=== PATIENT | female | born 1935 | race Caucasian/White ===

== ENCOUNTER 2023-03-06 12:50 | Emergency (ER) | payer MEDICARE, BC ==
[2023-03-06] MEDS ORDERED: BABY ASPIRIN 81 MG CHEW PO ONE (13:00)
[2023-03-06] MEDS ORDERED: Sodium Chloride 0.9% 1000 ML 1,000 ML IV STA (13:00)
[2023-03-06] MEDS ORDERED: Sodium Chloride 0.9% 1000 ML 1,000 ML ONE (13:05)
[2023-03-06] MEDS ORDERED: BABY ASPIRIN 81 MG CHEW ONE (13:05)
[2023-03-06 13:23] LABS: Absolute Neutrophil Ct (ANC) 3.03 x10^3/uL (1.4-6.9); Basophil (Absolute #) 0.05 x10^3/uL (0-0.4); Eosinophil % 2.9 % (0.00-5.0); Eosinophil (Absolute #) 0.15 x10^3/uL (0-0.5); Hematocrit 33.7 % (35-47); Hemoglobin 10.9 g/dL (12.0-16.0); IMMATURE GRAN # 0.02 x10^3u/L (0.00-0.03); IMMATURE GRAN % 0.4 % (0.00-0.4); Lymphocyte (Absolute #) 1.16 x10^3/uL (1.0-4.6); Lymphocytes % 22.5 % (24.0-44.0); Mean Corpuscular Hemoglobin 32.3 pg (26-32); Mean Corpuscular Hgb Concent. 32.3 g/dL (32-36); Mean Platelet Volume 10.4 fL (7.5-11.0); Monocyte (Absolute #) 0.75 x10^3/uL (0.0-1.3); Monocytes % 14.5 % (0.0-12.0); Neutrophil % 58.7 % (36.0-66.0); Platelet Count 153 x10^3/uL (150-450); Red Blood Count 3.37 x10^6/uL (4.1-5.4); Red Cell Distribution Width 13.2 % (11.5-14.0); White Blood Count 5.2 x10^3/uL (4.0-10.5)
--- NOTE | 2023-03-06 13:23 | ERPHSYRPT ---
- History of Present Illness Time Seen by Provider: 03/06/23 12:53 Source: patient Exam Limitations: no limitations Patient Subjective Stated Complaint: Syncope Triage Nursing Assessment: Patient brought into ED per EMS and transferred to bed with assist of 3. Patient A+O X 3. Patient's skin pale, warm and dry. Patient states she had a syncopal episode at [facility]. Patient states she remembers sitting at [facility] in a pew. Family states she was sitting at [facility] when they noticed patient became clammy and "passed out" for several minutes. Patient denies pain or discomfort. Physician History: Patient is here with syncope at [facility]. Just prior to arrival patient apparently had a syncopal episode. Patient sat down. States that she does not remember passing out. Family states that she was minimally responsive. However woke up immediately. EMS arrived. Stated the patient was hypotensive with a possible low pulse rate. Patient does have a pacemaker therefore patient maker should not drop below 60. No other falls or trauma. No fever or chills. Patient has been coughing the past few days. Patient states she is back to baseline and feels fine. Allergies/Adverse Reactions: No Known Drug Allergies Allergy (Unverified 03/06/23 15:31) Home Medications: Albuterol 2.5 mg/0.5 ml [PROVENTIL Solution 2.5 MG/0.5 ML] 1 neb NEBULIZE DAILY PRN PRN 03/06/23 [History] Azelastine HCl 1 drop DROPS BID 03/06/23 [History] Bumetanide 1 mg [Bumex 1 mg] 1 mg PO DAILY 03/06/23 [History] Carvedilol 3.125 mg [Coreg 3.125 MG] 3.125 mg PO BID 03/06/23 [History] Levothyroxine Sodium 112 Mcg [Synthroid 112 Mcg] 112 mcg PO DAILY 03/06/23 [History] Montelukast Sodium 10 mg [Singulair 10 MG] 10 mg PO DAILY 03/06/23 [History] Potassium Chloride 100 meq PO BID 03/06/23 [History] Pregabalin [Lyrica 100Mg] 100 mg PO TID 03/06/23 [History] Sacubitril/Valsartan [Entresto 24 mg-26 mg Tablet] 1 tab PO DAILY 03/06/23 [History] Temazepam 15 mg [Restoril 15 MG] 15 mg PO DAILY 03/06/23 [History] Hx Influenza Vaccination/Date Given: Yes Hx Pneumococcal Vaccination/Date Given: Yes Immunizations Up to Date: Yes Travel Risk - International Travel Have you traveled outside of the country in past 3 weeks: No - Coronavirus Screening Are you exhibiting any of the following symptoms?: No Close contact with a COVID-19 positive Pt in past 14-21 Days: No - Vaccine Status Have you recieved a Covid-19 vaccination: Yes Assistant Professor Of Philosophy: Unknown - Vaccination Dates Date of 2cond Vaccination (if applicable): na Dates if Unknown: na - Review of Systems Constitutional: No Fever, No Chills Eyes: No Symptoms Ears, Nose, & Throat: No Symptoms Respiratory: No Cough, No Dyspnea Cardiac: Syncope, No Chest Pain, No Edema Abdominal/Gastrointestinal: No Abdominal Pain, No Nausea, No Vomiting, No Diarrhea Genitourinary Symptoms: No Dysuria Musculoskeletal: No Back Pain, No Neck Pain Skin: No Rash Neurological: No Dizziness, No Focal Weakness, No Sensory Changes Psychological: No Symptoms Endocrine: No Symptoms All Other Systems: Reviewed and Negative - Past Medical History Pertinent Past Medical History: Yes Neurological History: No Pertinent History ENT History: No Pertinent History Cardiac History: Arrhythmia, High Cholesterol, Hypertension Respiratory History: No Pertinent History Endocrine Medical History: Hypothyroidism Musculoskeletal History: No Pertinent History GI Medical History: No Pertinent History History: No Pertinent History Psycho-Social History: No Pertinent History Female Reproductive Disorders: No Pertinent History Other Medical History: Pacemaker - Past Surgical History Past Surgical History: Yes Neuro Surgical History: No Pertinent History Cardiac: Pacemaker Respiratory: No Pertinent History Gastrointestinal: No Pertinent History Genitourinary: No Pertinent History Musculoskeletal: Orthopedic Surgery Female Surgical History: Mastectomy Other Surgical History: Masectomy right breast. Left wrist - Social History Smoking Status: Never smoker Exposure to second hand smoke: No Drug Use: none Patient Lives Alone: No - Nursing Vital Signs Nursing Vital Signs: Initial Vital Signs Temperature 97.4 F 03/06/23 12:56 Pulse Rate 60 03/06/23 12:56 Respiratory Rate 19 03/06/23 12:56 Blood Pressure 116/59 03/06/23 12:56 O2 Sat by Pulse Oximetry 95 03/06/23 12:56 Pain Scale Pain Intensity 0 - Physical Exam General Appearance: no apparent distress, alert Eye Exam: PERRL/EOMI, eyes nml inspection Ears, Nose, Throat Exam: normal ENT inspection, TMs normal, pharynx normal, moist mucous membranes Neck Exam: normal inspection, non-tender, supple, full range of motion Respiratory Exam: normal breath sounds, lungs clear, No respiratory distress Cardiovascular Exam: regular rate/rhythm, normal heart sounds, normal peripheral pulses Gastrointestinal/Abdomen Exam: soft, normal bowel sounds, No tenderness, No mass Back Exam: normal inspection, normal range of motion, No CVA tenderness, No vertebral tenderness Extremity Exam: normal inspection, normal range of motion, pelvis stable Neurologic Exam: alert, oriented x 3, cooperative, normal mood/affect, nml cerebellar function, nml station & gait, sensation nml, No motor deficits Skin Exam: normal color, warm, dry, No rash Lymphatic Exam: No adenopathy SpO2: 96 - Course Nursing assessment & vital signs reviewed: Yes EKG Interpreted by Me: RATE (Ventricularly paced pacemaker at 60) Ordered Tests: Active Orders 24 hr Category Date Time Status Meat And Seafood Manager STAT Care 03/06/23 13:01 Completed EKG-ER Only STAT Care 03/06/23 13:00 Completed IV Insertion STAT Care 03/06/23 13:00 Completed ABDOMEN AND PELVIS W CONTRAST [CT] Stat Exams 03/06/23 14:02 Completed CHEST 1 VIEW (PORTABLE) Stat Exams 03/06/23 13:01 Taken CHEST WITH CONTRAST [CT] Stat Exams 03/06/23 14:02 Completed HEAD WITHOUT CONTRAST [CT] Stat Exams 03/06/23 13:02 Completed CBC W DIFF Stat Lab 03/06/23 13:17 Completed CMP Stat Lab 03/06/23 13:17 Completed CULTURE,URINE Stat Lab 03/06/23 15:08 Ordered D-DIMER QUANTITATIVE Stat Lab 03/06/23 13:17 Completed PROCALCITONIN Stat Lab 03/06/23 13:17 Completed TROPONIN Q4H Lab 03/06/23 13:17 Completed TROPONIN Q4H Lab 03/06/23 14:54 Completed UA W/RFX UR CULTURE Stat Lab 03/06/23 13:45 Completed Medication Summary Discontinued Medications Generic Name Dose Route Start Last Admin Trade Name Freq PRN Reason Stop Dose Admin Aspirin 324 mg 03/06/23 13:00 03/06/23 13:06 Aspirin 81 Mg Tab.Chew PO 03/06/23 13:01 324 mg STAT ONE Administration Aspirin Confirm 03/06/23 13:05 Aspirin 81 Mg Tab.Chew Administered 03/06/23 13:06 Dose 324 mg .ROUTE .STK-MED ONE Sodium Chloride 1,000 mls @ 999 mls/hr 03/06/23 13:00 03/06/23 14:14 Sodium Chloride 0.9% 1000 Ml IV 03/06/23 14:00 Infused .Q1H1M STA Infusion Sodium Chloride Confirm 03/06/23 13:05 Sodium Chloride 0.9% 1000 Ml Administered 03/06/23 13:06 Dose 1,000 mls @ ud .ROUTE .STAcesoBee-MED ONE Lab/Rad Data: Laboratory Result Diagrams 03/06/23 13:17 03/06/23 13:17 Laboratory Results 03/06/23 03/06/23 03/06/23 Range/Units 14:54 13:45 13:17 WBC (4.0-10.5) x10^3/uL RBC (4.1-5.4) x10^6/uL Hgb (12.0-16.0) g/dL Hct (35-47) % MCV (78-100) fL MCH (26-32) pg MCHC (32-36) g/dL RDW (11.5-14.0) % Plt Count (150-450) x10^3/uL MPV (7.5-11.0) fL Gran % (36.0-66.0) % Immature Gran % (Auto) (0.00-0.4) % Nucleat RBC Rel Count (0.00-0.1) % Eos # (Auto) (0-0.5) x10^3/uL Immature Gran # (Auto) (0.00-0.03) x10^3u/L Absolute Lymphs (auto) (1.0-4.6) x10^3/uL Absolute Monos (auto) (0.0-1.3) x10^3/uL Absolute Nucleated RBC (0.00-0.01) x10^3u/L Lymphocytes % (24.0-44.0) % Monocytes % (0.0-12.0) % Eosinophils % (0.00-5.0) % Basophils % (0.0-0.4) % Absolute Granulocytes (1.4-6.9) x10^3/uL Basophils # (0-0.4) x10^3/uL D-Dimer (0.0-0.50) mg/L Sodium (137-145) mmol/L Potassium (3.5-5.1) mmol/L Chloride (98-107) mmol/L Carbon Dioxide (22-30) mmol/L Anion Gap (5-15) MEQ/L BUN (7-17) mg/dL Creatinine (0.52-1.04) mg/dL Estimated GFR ML/MIN Glucose (74-106) mg/dL Calcium (8.4-10.2) mg/dL Total Bilirubin (0.2-1.3) mg/dL AST (14-36) U/L ALT (0-35) U/L Alkaline Phosphatase (38-126) U/L Troponin I < 0.012 (0.000-0.034) ng/mL Serum Total Protein (6.3-8.2) g/dL Albumin (3.5-5.0) g/dL Procalcitonin 0.054 (0.030-0.080) ng/mL Urine Color Yellow (Yellow) Urine Appearance Clear (Clear) Urine pH 6.5 (4.6-8.0) Ur Specific [place] 1.020 (1.005-1.030) Urine Protein 30 (Negative) Urine Glucose (UA) Negative (Negative) mg/dL Urine Ketones Negative (Negative) Urine Blood Negative (Negative) Urine Nitrite Negative (Negative) Urine Bilirubin Negative (Negative) Urine Urobilinogen 1.0 A (0.2) mg/dL Ur Leukocyte Esterase Trace A (Negative) U Hyaline Cast (Auto) 6-10 A (0-2) /LPF Urine Microscopic RBC 0-2 (0-5) /HPF Urine Microscopic WBC 0-2 (0-5) /HPF Ur Epithelial Cells None Seen (None Seen) /HPF Urine Bacteria None Seen (None Seen) /HPF Urine Culture Reflexed NO (NO) Influenza Type A Ag (NEGATIVE) Influenza Type B Ag (NEGATIVE) RSV (PCR) (NEGATIVE) SARS-CoV-2 (PCR) (NEGATIVE) 03/06/23 03/06/23 03/06/23 Range/Units 13:17 13:17 13:17 WBC (4.0-10.5) x10^3/uL RBC (4.1-5.4) x10^6/uL Hgb (12.0-16.0) g/dL Hct (35-47) % MCV (78-100) fL MCH (26-32) pg MCHC (32-36) g/dL RDW (11.5-14.0) % Plt Count (150-450) x10^3/uL MPV (7.5-11.0) fL Gran % (36.0-66.0) % Immature Gran % (Auto) (0.00-0.4) % Nucleat RBC Rel Count (0.00-0.1) % Eos # (Auto) (0-0.5) x10^3/uL Immature Gran # (Auto) (0.00-0.03) x10^3u/L Absolute Lymphs (auto) (1.0-4.6) x10^3/uL Absolute Monos (auto) (0.0-1.3) x10^3/uL Absolute Nucleated RBC (0.00-0.01) x10^3u/L Lymphocytes % (24.0-44.0) % Monocytes % (0.0-12.0) % Eosinophils % (0.00-5.0) % Basophils % (0.0-0.4) % Absolute Granulocytes (1.4-6.9) x10^3/uL Basophils # (0-0.4) x10^3/uL D-Dimer 1.74 H* (0.0-0.50) mg/L Sodium 142 (137-145) mmol/L Potassium 3.7 (3.5-5.1) mmol/L Chloride 106 (98-107) mmol/L Carbon Dioxide 27 (22-30) mmol/L Anion Gap 12.7 (5-15) MEQ/L BUN 17 (7-17) mg/dL Creatinine 0.90 (0.52-1.04) mg/dL Estimated GFR > 60.0 ML/MIN Glucose 97 (74-106) mg/dL Calcium 8.0 L (8.4-10.2) mg/dL Total Bilirubin 1.00 (0.2-1.3) mg/dL AST 24 (14-36) U/L ALT 22 (0-35) U/L Alkaline Phosphatase 65 (38-126) U/L Troponin I < 0.012 (0.000-0.034) ng/mL Serum Total Protein 6.5 (6.3-8.2) g/dL Albumin 3.1 L (3.5-5.0) g/dL Procalcitonin (0.030-0.080) ng/mL Urine Color (Yellow) Urine Appearance (Clear) Urine pH (4.6-8.0) Ur Specific [place] (1.005-1.030) Urine Protein (Negative) Urine Glucose (UA) (Negative) mg/dL Urine Ketones (Negative) Urine Blood (Negative) Urine Nitrite (Negative) Urine Bilirubin (Negative) Urine Urobilinogen (0.2) mg/dL Ur Leukocyte Esterase (Negative) U Hyaline Cast (Auto) (0-2) /LPF Urine Microscopic RBC (0-5) /HPF Urine Microscopic WBC (0-5) /HPF Ur Epithelial Cells (None Seen) /HPF Urine Bacteria (None Seen) /HPF Urine Culture Reflexed (NO) Influenza Type A Ag (NEGATIVE) Influenza Type B Ag (NEGATIVE) RSV (PCR) (NEGATIVE) SARS-CoV-2 (PCR) (NEGATIVE) 03/06/23 03/06/23 Range/Units 13:17 13:13 WBC 5.2 (4.0-10.5) x10^3/uL RBC 3.37 L (4.1-5.4) x10^6/uL Hgb 10.9 L (12.0-16.0) g/dL Hct 33.7 L (35-47) % MCV 100.0 (78-100) fL MCH 32.3 H (26-32) pg MCHC 32.3 (32-36) g/dL RDW 13.2 (11.5-14.0) % Plt Count 153 (150-450) x10^3/uL MPV 10.4 (7.5-11.0) fL Gran % 58.7 (36.0-66.0) % Immature Gran % (Auto) 0.4 (0.00-0.4) % Nucleat RBC Rel Count 0.0 (0.00-0.1) % Eos # (Auto) 0.15 (0-0.5) x10^3/uL Immature Gran # (Auto) 0.02 (0.00-0.03) x10^3u/L Absolute Lymphs (auto) 1.16 (1.0-4.6) x10^3/uL Absolute Monos (auto) 0.75 (0.0-1.3) x10^3/uL Absolute Nucleated RBC 0.00 (0.00-0.01) x10^3u/L Lymphocytes % 22.5 L (24.0-44.0) % Monocytes % 14.5 H (0.0-12.0) % Eosinophils % 2.9 (0.00-5.0) % Basophils % 1.0 (0.0-0.4) % Absolute Granulocytes 3.03 (1.4-6.9) x10^3/uL Basophils # 0.05 (0-0.4) x10^3/uL D-Dimer (0.0-0.50) mg/L Sodium (137-145) mmol/L Potassium (3.5-5.1) mmol/L Chloride (98-107) mmol/L Carbon Dioxide (22-30) mmol/L Anion Gap (5-15) MEQ/L BUN (7-17) mg/dL Creatinine (0.52-1.04) mg/dL Estimated GFR ML/MIN Glucose (74-106) mg/dL Calcium (8.4-10.2) mg/dL Total Bilirubin (0.2-1.3) mg/dL AST (14-36) U/L ALT (0-35) U/L Alkaline Phosphatase (38-126) U/L Troponin I (0.000-0.034) ng/mL Serum Total Protein (6.3-8.2) g/dL Albumin (3.5-5.0) g/dL Procalcitonin (0.030-0.080) ng/mL Urine Color (Yellow) Urine Appearance (Clear) Urine pH (4.6-8.0) Ur Specific [place] (1.005-1.030) Urine Protein (Negative) Urine Glucose (UA) (Negative) mg/dL Urine Ketones (Negative) Urine Blood (Negative) Urine Nitrite (Negative) Urine Bilirubin (Negative) Urine Urobilinogen (0.2) mg/dL Ur Leukocyte Esterase (Negative) U Hyaline Cast (Auto) (0-2) /LPF Urine Microscopic RBC (0-5) /HPF Urine Microscopic WBC (0-5) /HPF Ur Epithelial Cells (None Seen) /HPF Urine Bacteria (None Seen) /HPF Urine Culture Reflexed (NO) Influenza Type A Ag NEGATIVE (NEGATIVE) Influenza Type B Ag NEGATIVE (NEGATIVE) RSV (PCR) NEGATIVE (NEGATIVE) SARS-CoV-2 (PCR) NEGATIVE (NEGATIVE) - Progress Progress: improved Progress Note: 03/06/23 13:36 Broad differential diagnosis. We will cardiac work-up, head CT, basic labs, COVID, flu, procalcitonin, chest x-ray. Continued close ER monitoring. 03/06/23 17:45 differential diagnosis includes: PNA, STEMI, NSTEMI, other infection, musculoskeletal pain, pneumothorax - We'll obtain basic labs, fluids, EKG, troponin, chest x-ray - 2 negative troponins over course of ER stay - EKG shows no ST changes - my read. See full read below. - O2 saturations consistently greater than 95%. - CXR shows no pneumonia, pneumothorax - my read D-dimer was elevated. Therefore we did obtain a CT chest abdomen pelvis. This did show some pulmonary nodules I talked to the patient about. CT scan otherwise shows no acute process. 2 negative troponins over ER observation time. No further episodes of syncope. Blood pressure has improved with fluids here. May return here sooner for new or changing symptoms. Patient does have a pacemaker, should call her bulk clerk first thing tomorrow to schedule close follow-up. May return here sooner for any new or changing symptoms. Medical Desision Making - Independent Historian Additional History obtained from: Family - Diagnostic Testing Diagnostic test were ordered, analyzed, and reviewed by me: Yes Radiological Interpretation: Reviewed by me - Risk of complications Minimal Risk: Minimal risk of morbidity - Departure Departure Disposition: Home Clinical Impression: Syncope, Lung nodule Condition: Stable Critical Care Time: No Referrals: STEPHANY DE ANDA PA [NON-STAFF PHY W/O PRIVILEGES] - Follow up/PCP as directed Instructions: Syncope (Fainting) (DC) Additional Instructions: You will need follow-up for this lung nodule in the left lung base. Possible new cancer. Follow-up with your PCP for this.
[2023-03-06 13:37] LABS: ALBUMIN 3.1 g/dL (3.5-5.0); ALKALINE PHOSPHATASE 65 U/L (38-126); ANION GAP 12.7 MEQ/L (5-15); BLOOD UREA NITROGEN 17 mg/dL (7-17); CHLORIDE 106 mmol/L (98-107); Carbon Dioxide 27 mmol/L (22-30); EST GLOMERULAR FILTRATION RATE > 60.0 ML/MIN; Glucose 97 mg/dL (74-106); Potassium 3.7 mmol/L (3.5-5.1); SGOT/AST 24 U/L (14-36); SGPT/ALT 22 U/L (0-35); SODIUM 142 mmol/L (137-145); Total Protein 6.5 g/dL (6.3-8.2)
[2023-03-06 14:02] LABS: INFLUENZA A NEGATIVE (NEGATIVE); INFLUENZA B NEGATIVE (NEGATIVE); RESPIRATORY SYNCTIAL VIRUS NEGATIVE (NEGATIVE); SARS-CoV-2 Xpert Express NEGATIVE (NEGATIVE)
--- NOTE | 2023-03-06 14:09 | XRAY ---
CLINICAL HISTORY:syncope COMPARISON:None; TECHNIQUES:Multiplanar, non-contrast CT brain performed. CTDI 53.92mGy, DLP 935.49mGy*cm; FINDINGS: Age-matched involutional changes involving brain parenchyma. Periventricular white matter microvascular ischemic changes. Multifocal supra tentorial deep white matter discrete hypodense foci more prominent at the left thalamus are noted to suggest old lacunar infarctions of various chronological ages, clinical correlation advised for evaluation of clinical significance. No midline shifts or deformity. No intracerebral or extra axial hematoma. Normal size and configuration of the cerebral ventricles. Normal CT appearance of the posterior fossa structures namely the cerebellar hemispheres, brainstem, and cerebellar peduncles. The IACs are unremarkable. The osseous structures in the skull base are unremarkable. No definite calvarium fractures. Bilateral ethmoidal left more than right, sphenoid and left frontal acute on chronic sinusitis. IMPRESSION: 1-No intracranial hematoma No established territorial infarction. 2-Brain parenchyma involutional changes, white matter microvascular ischemic changes, and multifocal old lacunar infarctions as described above. 3-Bilateral ethmoidal left more than right, sphenoid, and left frontal acute on chronic sinusitis. Electronically Signed by: Libra Bailey MD. (03/06/2023 13:04:28 STREAMING MEDIA SPECIALIST)
[2023-03-06 14:37] LABS: Appearance Clear (Clear); Bacteria None Seen /HPF (None Seen); Bilirubin Negative (Negative); Blood Negative (Negative); Epithelial Cells None Seen /HPF (None Seen); Glucose, Urine Negative (Negative); Ketones Negative (Negative); Leukocyte Esterase Trace (Negative); Nitrite Negative (Negative); Ph 6.5 (4.6-8.0); Protein,Urine Dip 30 (Negative); RBC 0-2 /HPF (0-5); WBC 0-2 /HPF (0-5)
[2023-03-06 14:38] LABS: ADD URINE CULTURE? NO (NO)
--- NOTE | 2023-03-06 16:09 | XRAY ---
CLINICAL HISTORY:PE, syncop; COMPARISON:None; TECHNIQUES:Multiplanar CT Chest performed with IV contrast using pulmonary angiography protocol. CTDI 50mGy, DLP 1155mGy*cm; FINDINGS: No pulmonary embolism noted in the pulmonary arterial system. Correlation to D dimers levels advised. Under lung window settings, atelectasis / collapsed of medial posterior basal segment noted on left side. A spiculated density measuring 1.7 cm noted in posterior segment of left lung base. This is a suspicious nodular density (LUNG RAD CATEGORY IV A) moderately suspicious for a suspicious pathology, Biopsy or PET CT follow up advised for further evaluation. 8 mm solid soft tissue density nodule seen in posterior segment of left upper lobe (LUNG RAD CATEGORY III) probably benign short interval follow up advised. Bibasal fibrotic changes noted more marked on left side. No free or encysted pleural effusion. Mild cardiomegaly and cardiac pace maker wires seen in place. No pathologically enlarged mediastinal, hilar or axillary lymph node identified. Patent tracheobronchial tree. There is no definite mass lesion in the chest wall. Degenerative changes seen in the visualized spine, no lytic/sclerotic lesion seen in the visualized bones to suggest bony metastases. IMPRESSION: 1. No pulmonary embolism. 2. Bibasal pulmonary fibrosis, left more than right, collapsed / atelectasis medial basal segment left lung base. 3. A spiculated density measuring 1.7 cm noted in posterior segment of left lung base. This is a suspicious nodular density (LUNG RAD CATEGORY IV A) moderately suspicious for a neoplastic lesion, Biopsy or PET CT follow up advised for further evaluation. 4. 8 mm solid soft tissue density nodule seen in posterior segment of left upper lobe (LUNG RAD CATEGORY III) probably benign short interval follow up advised. Electronically Signed by: Lbira Bailey MD. (03/06/2023 15:04:25 HYDROMETER TESTER)
--- NOTE | 2023-03-06 16:17 | XRAY ---
CLINICAL HISTORY:Abdominal pain; COMPARISON:None; TECHNIQUES:ultiplanar CT abdomen and pelvis performed with intravenous contrast. CTDI 50 DLP 1155; FINDINGS: Liver is unremarkable with no focal lesion seen. BIliary, portal and hepatic venous radicles are unremarkable. Gall bladder shows no stone and no cholecystitis. Pancreatic parenchymal calcification with minimal prominence of pancreatic duct suggest chronic changes, no definite evidence of pancreatitis peripancreatic inflammatory changes or free fluid or enhancing pancreatic lesions noted. Spleen appears unremarkable. Both kidneys are normal except few tiny cortical based cysts, no renal stones, hydronephrosis or solid lesions seen. Both adrenal glands appear unremarkable. Stomach, small and large bowel loops are unremarkable with no mechanical obstruction or ileus. Two high density enteroliths are seen in distal small bowel loops in right hemipelvis. No enlarged abdominopelvic lymphadenopathy. There are atheromatous changes in aorta with no high grade stenosis or aneurysmal dilatation. No ascites. No pneumoperitoneum. Degenerative changes in spine. IMPRESSION: Two enteroliths seen in distal small bowel loops otherwise bowel loops appear unremarkable. Mild chronic changes in pancreatic parenchyma with ductal prominence otherwise unremarkable. Otherwise unremarkable CT abdomen and pelvis. Electronically Signed by: Libra Bailey MD. (03/06/2023 15:10:44 REGULATOR INSPECTOR)
[2023-03-06 16:26] VITALS: BP 96/52; PULSE 65
[2023-03-06 17:47] VITALS: O2SAT 96
--- NOTE | 2023-03-06 18:45 | XRAY ---
Indication: Syncope. Comparison: None Portable chest demonstrates tiny right base calcified granuloma. Cardiomegaly obscures left lung base. Remaining heart and lungs unremarkable with incidental left duly pacemaker. Bony thorax intact with osteopenia and mild degenerative changes.
== END 2023-03-06 16:39 | disposition home or self-care (01) ==
LOC: ED 12:50
DX: R55 Syncope and collapse (principal); R91.1 Solitary pulmonary nodule; R05.9 Cough, unspecified; E78.5 Hyperlipidemia, unspecified; I10 Essential (primary) hypertension; Z79.899 Other long term (current) drug therapy; Z20.828 Contact with and (suspected) exposure to other viral communicable diseases
CPT/HCPCS: 0241U; 36415; 70450; 71045; 71260; 74177; 80053; 81001; 84145; 84484; 85025; 85379; 87086; 93005; 93041; 96360; 99284; A9270-GY